=== PATIENT | female | born 1965 | race Asian ===

== ENCOUNTER 2018-05-03 22:34 | Emergency (ER) | payer SELFPAY ==
[~2018-05-03] VITALS: Ht 157.5 cm; Wt 63.9 kg
[2018-05-03 23:30] LABS: HEMATOCRIT 37.7 % (36.0-46.0); HEMOGLOBIN 13.3 G/DL (11.9-15.5); MCH 31.4 PG (29.0-34.0); MCHC 35.3 G/DL (30.0-36.0); MCV 89.1 FL (83-99); RBC DIS.WIDTH-CV 13.6 % (11.8-14.6); RBC DIS.WIDTH-SD 44.1 % (39-53); RED BLOOD COUNT 4.23 M/uL (3.80-5.20)
[2018-05-03 23:38] LABS: ALBUMIN 4.1 g/dL (3.2-4.8)
[2018-05-03 23:39] LABS: CHLORIDE 111 mEq/L (99-109); POTASSIUM 3.6 mEq/L (3.7-5.4); SODIUM 145 mEq/L (136-147)
[2018-05-03 23:41] LABS: GLUCOSE 164 mg/dL (70-99); TOTAL PROTEIN 7.6 g/dL (6.4-8.3)
[2018-05-03 23:43] LABS: TOTAL BILIRUBIN 0.5 mg/dL (0.0-1.0)
[2018-05-03 23:44] LABS: ALKALINE PHOSPHATASE 94 IU/L (3-129)
[2018-05-03 23:45] LABS: CREATININE 0.8 mg/dL (0.6-1.3); GFR ESTIMATE (CALCULATED) > 59 mL/min/
[2018-05-03 23:46] LABS: AST (GOT) 18 IU/L (2-34); UREA NITROGEN (BUN) 12 mg/dL (9-23)
[2018-05-03 23:48] LABS: ALT (GPT) 27 IU/L (3-49); LIPASE 34 U/L (1.0-51.0)
[2018-05-03 23:51] LABS: TROP-I INTERPRETATION NEGATIVE; TROPONIN-I < 0.01 ng/mL (0.0-0.30)
[2018-05-03 23:55] LABS: APPEARANCE CLOUDY ((CLEAR)); BILIRUBIN NEGATIVE; BLOOD NEGATIVE; COLOR YELLOW ((YELLOW)); GLUCOSE (STRIP) 50; KETONES NEGATIVE; LEUKOCYTES SMALL; NITRITE NEGATIVE; PROTEIN (STRIP) NEGATIVE; SPECIFIC GRAVITY 1.017 (1.000-1.030); UROBILINOGEN 0.2 MG/DL (0.2-1.0)
[2018-05-04 00:08] LABS: QUANTITATIVE HCG < 4.0 MIU/ML
[2018-05-04 00:10] LABS: EPITHELIAL CELLS RARE /HPF; MUCUS NONE SEEN /LPF; RED BLOOD CELLS 0-5 /HPF (0-5); WHITE BLOOD CELLS 0-5 /HPF (0-5)
[2018-05-04 00:11] LABS: AMORPHOUS URATES CRYSTALS 3+; BACTERIA 2+ /HPF
[2018-05-04 00:31] VITALS: BP 127/80
[2018-05-04] MEDS ORDERED: KEFLEX500 MG PO (00:31)
[2018-05-04] MEDS ORDERED: ZOFRAN ODT4 MG PO (00:31)
[2018-05-04 01:11] LABS: PLAT.SUFFICIENCY ADEQUATE; PLATELET COUNT 284 K/uL (156-360)
== END 2018-05-04 00:43 | disposition home or self-care (01) ==
LOC: EME 22:34
PROVIDERS: Nurse Practitioner Family
DX: R11.2 Nausea with vomiting, unspecified (principal); I10 Essential (primary) hypertension; N39.0 Urinary tract infection, site not specified; R00.2 Palpitations; R42 Dizziness and giddiness; R73.9 Hyperglycemia, unspecified; Z88.0 Allergy status to penicillin; Z87.440 Personal history of urinary (tract) infections
CPT/HCPCS: 80053; 81003; 83690; 84484; 84702; 85027; 93005; 99281; 99285; J2060; J7030